=== PATIENT | male | born 2005 | race Two or more races ===

== ENCOUNTER → 2025-01-08 | Outpatient (CLI) | payer MEDICAID, SELFPAY ==
--- NOTE | 2025-01-08 | XR_ITS ---
Examination: PA lateral chest 2 views TECHNIQUE: Upright PA lateral chest 2 views Date and time: January 08, 2025 12:25 PM INDICATIONS: Coughing beginning 3 weeks ago. FINDINGS: Normal heart size. Lungs are clear. Osseous structures are intact IMPRESSION: No active disease
--- NOTE | 2025-01-08 | XR_ITS ---
Examination: Hand, right 3 views Technique: Hand AP, oblique, lateral 3 views Date and time of exam: January 08, 2025 12:29 PM INDICATIONS: Twisting injury to the hand yesterday with third digit pain. FINDINGS: Acute fracture distal aspect middle phalanx third digit without significant displacement No foreign body IMPRESSION: Acute fracture distal aspect middle phalanx third digit without significant displacement
== END | disposition home or self-care (01) ==
PROVIDERS: Referring Provider Student in an Organized Health Care Education/Training Program; Visit Provider Student in an Organized Health Care Education/Training Program
DX: R05.9 Cough, unspecified (principal); S62.622A Displaced fracture of middle phalanx of right middle finger, initial encounter for closed fracture; X50.1XXA Overexertion from prolonged static or awkward postures, initial encounter
CPT/HCPCS: 71046; 73130

== ENCOUNTER → 2025-02-04 | Outpatient (CLI) | payer MEDICAID, SELFPAY ==
--- NOTE | 2025-02-04 08:20 | XR_ITS ---
Examination: Hand, right 3 views Technique: Hand AP, oblique, lateral 3 views Date and time of exam: February 04, 2025, 0828 hours INDICATIONS: Acute fracture distal aspect middle phalanx third digit on films 01/08/2025 FINDINGS: No significant change in alignment fracture distal aspect middle phalanx third digit with early healing and stable alignment IMPRESSION: Early healing fracture middle phalanx third digit with stable alignment
== END | disposition home or self-care (01) ==
LOC: CDIM 08:11
PROVIDERS: PCP Student in an Organized Health Care Education/Training Program; Referring Provider Student in an Organized Health Care Education/Training Program; Visit Provider Student in an Organized Health Care Education/Training Program
DX: S62.622A Displaced fracture of middle phalanx of right middle finger, initial encounter for closed fracture (principal); X58.XXXA Exposure to other specified factors, initial encounter
CPT/HCPCS: 73130